=== PATIENT | male | born 1980 | race Caucasian/White ===

== ENCOUNTER 2020-05-23 20:48 | Outpatient (REF) | payer MEDICAID, SELFPAY ==
[2020-05-23 21:11] LABS: Abs Immature Grans 0.02 10^3/uL (0.0-0.06); Absolute Basophil Count 0.05 10^3/uL (0.0-0.2); Absolute Lymphocyte Count 1.46 10^3/uL (1.2-3.4); Absolute Monocyte Count 0.54 10^3/uL (0.1-0.8); Absolute Neutrophil Count 4.27 10^3/uL (1.2-6.7); Basophils % 0.8; Eosinophils % 3.1; HCT 47.7 % (40.0-50.0); HGB 15.4 g/dL (13.5-17.5); Immature Grans % 0.3; Lymphocytes % 22.3; MCH 28.6 pg (27.0-33.0); MCHC 32.3 % (32.0-36.0); MCV 88.5 fL (80-95); MPV 11.5 fL (8.0-11.0); Monocytes % 8.3; Neutrophils % 65.2; Nucleated RBC 0 %; Platelet Count 254 10^3/uL (130-400); RBC 5.39 10^6/uL (4.36-5.78); RDW 12.1 % (11.8-14.1); RDW-SD 39.2 fL; WBC 6.54 10^3/uL (4.4-10.8)
[2020-05-23 21:51] LABS: Anion Gap 12.9 mmol/L (3-11); BUN 22 mg/dL (7-18); CO2 25.1 mmol/L (21.0-32.0); CREATININE 1.14 mg/dL (0.70-1.30); Calcium 9.4 mg/dL (8.5-10.1); Chloride 102 mmol/L (98-107); Glucose 84 mg/dL (74-106); Potassium 4.4 mmol/L (3.5-5.1); Sodium 140 mmol/L (136-145)
[2020-05-23 22:18] LABS: ESR 4 mm/hr (0-15)
[2020-05-25 16:47] LABS: Rheumatoid Factor <8.6 IU/mL (<12.0)
[2020-05-26 09:34] LABS: Lyme Ab w Rflx to Lyme Confirm Negative (Negative)
[2020-05-27 23:25] LABS: Anaplasma phagocytophilum Negative (Negative); B. miyamotoi PCR Negative (Negative); Babesia divergens/MO-1 Negative (Negative); Babesia duncani Negative (Negative); Babesia microti Negative (Negative); Ehrlichia chaffeensis Negative (Negative); Ehrlichia ewingii/canis Negative (Negative); Ehrlichia muris eauclairensis Negative (Negative)
== END 2020-05-23 21:08 ==
LOC: LBN 20:48
PROVIDERS: Nurse Practitioner Family
DX: M25.511 Pain in right shoulder (principal); M25.512 Pain in left shoulder; M25.571 Pain in right ankle and joints of right foot; M25.572 Pain in left ankle and joints of left foot
CPT/HCPCS: 80048; 85652; 87798; 85025; 86431; 86618

== ENCOUNTER 2020-05-26 01:27 | Outpatient (CLI) | payer MEDICAID, SELFPAY ==
--- NOTE | 2020-05-26 06:45 | DI.RAD_ITS ---
EXAM: XR SHOULDER RT COMPLETE 2+V CLINICAL HISTORY: Bilateral shoulder pain. TECHNIQUE: 2D digital imaging was performed. COMPARISON: No exams were available for comparison FINDINGS: BONES: No acute fracture is present. No bony destructive lesion is seen. JOINTS: No dislocation present. The joint spaces are well maintained. SOFT TISSUE: Normal. IMPRESSION: Unremarkable radiographs of the right shoulder. DATA REPOSITORY: RADIATION DOSE DELIVERED:
--- NOTE | 2020-05-26 06:45 | DI.RAD_ITS ---
EXAM: XR ANKLE LT COMPLETE CLINICAL HISTORY: BILAT ANKLE PAIN,M25.579 TECHNIQUE: 2D digital imaging was performed. COMPARISON: No exams were available for comparison FINDINGS: BONES: No acute fracture is present. No bony destructive lesion is seen. JOINTS:The ankle mortise is normally aligned. Mild degenerative changes are seen in the visualized fo ot. SOFT TISSUE: Normal. IMPRESSION: No acute abnormality. DATA REPOSITORY: RADIATION DOSE DELIVERED:
--- NOTE | 2020-05-26 06:45 | DI.RAD_ITS ---
EXAM: XR SHOULDER LT COMPLETE 2+V CLINICAL HISTORY: Bilateral shoulder pain,M25.511,M25.512. TECHNIQUE: 2D digital imaging was performed. COMPARISON: CR LEFT SHOULDER COMPLETE from 05/24/2014 FINDINGS: BONES: No acute fracture is present. No bony destructive lesion is seen. JOINTS: No dislocation present. The joint spaces are well maintained. SOFT TISSUE: Increased size and number of calcifications adjacent to the greater tuberosity consisten t with calcific tendinitis. IMPRESSION: Calcific tendinitis. DATA REPOSITORY: RADIATION DOSE DELIVERED:
--- NOTE | 2020-05-26 06:45 | DI.RAD_ITS ---
EXAM: XR ANKLE RT COMPLETE CLINICAL HISTORY: BILAT ANKLE PAIN,M25.579. TECHNIQUE: 2D digital imaging was performed. COMPARISON: No exams were available for comparison FINDINGS: BONES: No acute fracture is present. No bony destructive lesion is seen. JOINTS: The ankle mortise is normally aligned. SOFT TISSUE: Normal. IMPRESSION: Unremarkable radiographs of the right ankle. DATA REPOSITORY: RADIATION DOSE DELIVERED:
== END 2020-05-26 01:47 ==
PROVIDERS: Visit Provider Nurse Practitioner Family
DX: M75.32 Calcific tendinitis of left shoulder (principal); M25.511 Pain in right shoulder; M25.571 Pain in right ankle and joints of right foot; M25.572 Pain in left ankle and joints of left foot
CPT/HCPCS: 73030; 73610

== ENCOUNTER 2020-08-25 11:00 | Emergency (ER) | payer MEDICAID, SELFPAY ==
[2020-08-25 11:03] VITALS: BP 148/101; PULSE 104; RESP 16; TEMP 36.6; O2SAT 98
--- NOTE | 2020-08-25 11:15 | DI.RAD_ITS ---
EXAM: XR SHOULDER LT COMPLETE 2+V CLINICAL HISTORY: Pain TECHNIQUE: COMPARISON: CR XR SHOULDER LT COMPLETE 2+V from 05/26/2020 FINDINGS: Six views were obtained. There are dense amorphous calcifications which appear to be associated with the infraspinatus tendon, consistent with a calcific peritendinitis. No other bony or soft tissue a bnormality seen. Cartilaginous joint space of the glenohumeral joint appears well maintained. IMPRESSION: Calcific peritendinitis associated with infraspinatus tendon. RADIATION DOSE DELIVERED: Total DLP
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
[2020-08-25] MEDS: Cyclobenzaprine 10 MG TAB PO (11:34)
[2020-08-25] MEDS: Ketorolac 30 MG/ML VIAL IM (11:35)
[2020-08-25] MEDS: Lidocaine 5% Patch 1 PATCH TP (11:35)
[2020-08-25 13:04] VITALS: BP 128/96; PULSE 85; RESP 14; TEMP 36.6; O2SAT 97
[2020-08-25 13:10] VITALS: BP 128/96; PULSE 85; RESP 14; TEMP 36.6; O2SAT 97
--- NOTE | 2020-08-26 09:47 | NUR.NOTE ---
Nursing Note: [id number]--Pt called stating pain not better and may be worse.Had called PT who could not get him in today and he needed to get a pcp appt.. Suggested he come back to ER pt states Thanks for nothing and hung up.
== END 2020-08-25 13:15 | disposition home or self-care (01) ==
PROVIDERS: Emergency Provider Registered Nurse Emergency
DX: M75.32 Calcific tendinitis of left shoulder (principal); R20.2 Paresthesia of skin
CPT/HCPCS: 96372; 99284; 73030; J1885; L3650

== ENCOUNTER 2021-05-29 13:56 | Emergency (ER) | payer OTHER, SELFPAY ==
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
[2021-05-29 14:01] VITALS: BP 163/79; PULSE 51; RESP 17; TEMP 36.7; O2SAT 95
[2021-05-29] MEDS: Meclizine 25 MG TAB PO (14:12)
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
== END 2021-05-29 15:22 | disposition home or self-care (01) ==
PROVIDERS: Emergency Provider Student in an Organized Health Care Education/Training Program
DX: R42 Dizziness and giddiness (principal); R51.9 Headache, unspecified; H55.09 Other forms of nystagmus; S06.899A Other specified intracranial injury with loss of consciousness of unspecified duration, initial encounter; Y04.2XXA Assault by strike against or bumped into by another person, initial encounter
CPT/HCPCS: 99284; 70450; 72125

== ENCOUNTER 2022-12-15 03:05 | Outpatient (CLI) | payer MEDICAID, SELFPAY ==
[2022-12-15 12:29] LABS: ALT 29 U/L (16-63); AST 19 U/L (15-37); Albumin 4.2 g/dL (3.4-5.0); Alkaline Phosphatase 78 U/L (46-116); Anion Gap 6.4 mmol/L (3-11); BUN 16 mg/dL (7-18); Bilirubin, Total 0.4 mg/dL (0.2-1.0); CO2 31.6 mmol/L (21.0-32.0); CREATININE 1.1 mg/dL (0.70-1.30); Calcium 9.4 mg/dL (8.5-10.1); Calculated LDL 88 mg/dL (<100); Chloride 105 mmol/L (98-107); Cholesterol 182 mg/dL (<200); Estimated GFR 85.42 (mL/min/1.73m2); Glucose 128 mg/dL (74-106); HDL Cholesterol 65 mg/dL (40-60); Potassium 4.2 mmol/L (3.5-5.1); Sodium 143 mmol/L (136-145); Total Protein 7.5 g/dL (6.4-8.2); Triglyceride 145 mg/dL (<150)
== END 2022-12-15 03:06 | disposition home or self-care (01) ==
LOC: LOS 03:05
PROVIDERS: PCP Nurse Practitioner Family; Visit Provider Nurse Practitioner Family
DX: E78.5 Hyperlipidemia, unspecified (principal); F41.8 Other specified anxiety disorders
CPT/HCPCS: 36415; 80053; 80061

== ENCOUNTER 2023-01-10 01:19 | Outpatient (CLI) | payer MEDICAID, SELFPAY ==
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
== END 2023-01-10 01:39 ==
LOC: DI 01:19
PROVIDERS: PCP Nurse Practitioner Family; Visit Provider Nurse Practitioner Family
DX: R10.31 Right lower quadrant pain (principal); K42.9 Umbilical hernia without obstruction or gangrene; R59.0 Localized enlarged lymph nodes
CPT/HCPCS: 76857

== ENCOUNTER 2023-01-12 08:03 | Outpatient (CLI) | payer MEDICAID, SELFPAY ==
[2023-01-12 12:32] LABS: Abs Immature Grans 0.02 10^3/uL (0.0-0.06); Absolute Basophil Count 0.06 10^3/uL (0.0-0.2); Absolute Eosinophil Count 0.24 10^3/uL (0.0-0.7); Absolute Lymphocyte Count 1.69 10^3/uL (1.2-3.4); Absolute Monocyte Count 0.44 10^3/uL (0.1-0.8); Absolute Neutrophil Count 4.04 10^3/uL (1.2-6.7); Basophils % 0.9; Eosinophils % 3.7; HCT 43.2 % (40.0-50.0); HGB 14.4 g/dL (13.5-17.5); Immature Grans % 0.3; MCH 28.6 pg (27.0-33.0); MCHC 33.3 % (32.0-36.0); MCV 86 fL (80-95); MPV 11.6 fL (8.0-11.0); Monocytes % 6.8; Neutrophils % 62.3; Platelet Count 251 10^3/uL (130-400); RBC 5.03 10^6/uL (4.36-5.78); RDW 12.9 % (11.8-14.1); RDW-SD 40.1 fL; WBC 6.49 10^3/uL (4.4-10.8)
[2023-01-12 12:54] LABS: TSH (W/Ref FT4) 2.74 uIU/mL (0.36-3.74)
[2023-01-13 10:59] LABS: Hepatitis C Ab w Rflx HCV PCR Negative (Negative)
[2023-01-13 11:03] LABS: HIV-1/2 Ag & Ab Screen Negative (Negative)
== END 2023-01-12 08:04 | disposition home or self-care (01) ==
LOC: LOS 08:03
PROVIDERS: PCP Nurse Practitioner Family; Referring Provider Nurse Practitioner Family; Visit Provider Nurse Practitioner Family
DX: R53.83 Other fatigue (principal); R59.0 Localized enlarged lymph nodes; Z11.4 Encounter for screening for human immunodeficiency virus [HIV]; Z11.59 Encounter for screening for other viral diseases
CPT/HCPCS: 36415; 86803; 87389; 84443; 85025

== ENCOUNTER 2023-01-12 13:17 | Outpatient (REF) | payer MEDICAID, SELFPAY ==
[2023-01-12 14:55] LABS: Bilirubin Negative (Negative); Blood Negative (Negative); Clarity Clear (Clear); Glucose Negative (Negative); Ketones Negative (Negative); Leukocyte Esterase Negative (Negative); Nitrite Negative (Negative); Specific Gravity 1.025 (1.005-1.025); Urobilinogen 0.2 mg/dL (Up to 0.2)
[2023-01-13 13:59] LABS: Chlamydia Result Negative (Negative); GC Result Negative (Negative)
== END 2023-01-12 13:18 | disposition home or self-care (01) ==
LOC: LBN 13:17
PROVIDERS: PCP Nurse Practitioner Family; Visit Provider Nurse Practitioner Family
DX: R59.0 Localized enlarged lymph nodes (principal); F41.8 Other specified anxiety disorders; R53.83 Other fatigue
CPT/HCPCS: 87491; 87591; 81003

== ENCOUNTER 2024-05-28 02:08 | Outpatient (CLI) | payer MEDICAID, SELFPAY ==
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
== END 2024-05-28 02:28 ==
LOC: DI 02:08
PROVIDERS: PCP Nurse Practitioner Family; Visit Provider Nurse Practitioner Family
DX: V86.59XA Driver of other special all-terrain or other off-road motor vehicle injured in nontraffic accident, initial encounter (principal); M79.674 Pain in right toe(s); N50.811 Right testicular pain; N43.3 Hydrocele, unspecified; I86.1 Scrotal varices; M20.11 Hallux valgus (acquired), right foot; R22.42 Localized swelling, mass and lump, left lower limb; N50.812 Left testicular pain
CPT/HCPCS: 73590; 73610; 73630; 76870

== ENCOUNTER 2024-09-27 02:07 | Outpatient (CLI) | payer MEDICAID, SELFPAY ==
--- NOTE | 2024-09-27 15:00 | DI.US_ITS ---
Exam(s) US HERNIA EXAM: US HERNIA CLINICAL HISTORY: R10.32 Acute left groin pain. TECHNIQUE: Ultrasound was performed using standard protocol. COMPARISON: US US HERNIA from 01/10/2023 US US SCROTUM from 05/28/2024 FINDINGS: Images are submitted from ultrasound examination of region of the left groin and right anterior abdom inal wall. In the left groin there are multiple lymph nodes measuring up to 2.6 cm size. Also in the left groin there appears to be a fat containing hernia sac which measures 3 cm length. Does not appear to cont ain obvious bowel loops therein. At the 2nd site right anterior abdominal wall lateral to the umbilicus there is also another hernia s ac evident which is 2.3 cm long and appears to contain fat and as well as some fluid within the herni a sac. IMPRESSION: Left inguinal hernia Right anterior abdominal wall hernia, as described above. DATA REPOSITORY:
== END 2024-09-27 02:27 ==
LOC: DI 02:07
PROVIDERS: PCP Nurse Practitioner Family; Visit Provider Nurse Practitioner Family
DX: K40.90 Unilateral inguinal hernia, without obstruction or gangrene, not specified as recurrent (principal)
CPT/HCPCS: 76857

== ENCOUNTER 2024-10-26 22:02 | Outpatient (REF) | payer MEDICAID, SELFPAY ==
[2024-10-26 22:07] LABS: Bilirubin Negative (Negative); Blood Negative (Negative); Clarity Clear (Clear); Glucose Negative (Negative); Ketones Trace mg/dL (Negative); Leukocyte Esterase Negative (Negative); Nitrite Negative (Negative); Specific Gravity 1.025 (1.005-1.025); Urobilinogen 0.2 mg/dL (Up to 0.2)
== END 2024-10-26 22:03 | disposition home or self-care (01) ==
LOC: LBN 22:02
PROVIDERS: PCP Nurse Practitioner Family; Visit Provider Nurse Practitioner Family
DX: R39.198 Other difficulties with micturition
CPT/HCPCS: 81003

== ENCOUNTER 2024-10-31 02:07 | Outpatient (CLI) | payer MEDICAID, SELFPAY ==
--- NOTE | 2024-10-31 06:45 | DI.CT_ITS ---
Exam(s) CT ABDOMEN PELVIS W EXAM: CT ABDOMEN PELVIS W CLINICAL HISTORY: Painful BMs, urinating,?strangulation, ?stone. TECHNIQUE: Imaging Protocol: Axial computed tomography images with coronal and sagittal reformatted images were created and reviewed CONTRAST MATERIAL: Intravenous: Omnipaque 350 Contrast volume:75 ml Oral: yes COMPARISON: CT ABD PELVIS WITH CONTRAST from 09/24/2009 FINDINGS: ABDOMEN and PELVIS: Lung Bases: No acute findings. Liver: Normal density. No suspicious mass. Gallbladder and biliary tract: No radiodense calculus. No wall thickening or pericholecystic fluid. No biliary dilation. Pancreas: Normal density. No abnormal calcifications or inflammatory process. No evidence of mass. Spleen: Normal. Kidneys: Normal size, contour and axis. No radiodense stones. No obstructive uropathy. No suspicious masses seen. Adrenal glands: No masses seen. Vasculature: Abdominal aorta non-dilated. Soft tissues: Unremarkable. Bladder: No gross wall thickening. No calculi.No focal mass. Bowel: No obstruction. No bowel wall thickening. No evidence of appendicitis. Large quantity of st ool throughout the colon, consistent with constipation. Peritoneal cavity: No ascites. No focal collection. No mesenteric inflammatory response. No free air . Bones: Unremarkable for age. Reproductive organs: Unremarkable. Lymph nodes: No pathologically enlarged lymph nodes. IMPRESSION:: No acute abnormality in the abdomen or pelvis. Large quantity of stool throughout the colon, consistent with constipation. RADIATION DOSE DELIVERED: 426.43mGy.cm Total DLP DATA REPOSITORY: All CT scans at this facility are submitted to the National Radiology Data Registry (NRDR) Dose Index Registry (DIR) with the [employer] ([employer]). RADIATION OPTIMIZATION: All CT scans at this facility use at least one of these dose optimization te chniques: automated exposure control; mA and/or kV adjustment per patient size (includes targeted exa ms where dose is matched to clinical indication); or iterative reconstruction.
[2024-10-31] MEDS: Barium Sulfate 2% W/V-Berry Smoothie 450 ML BTL PO (09:00)
[2024-10-31] MEDS: Barium Sulfate 2% W/V-Creamy Vanilla Smoothie 450 ML BTL PO (09:01)
[2024-10-31] MEDS: Normal Saline - Diluent 50 ML VIAL IJ (11:19)
[2024-10-31] MEDS: Omnipaque 350 MG/ML 500 ML BTL-Imaging package IJ (11:21)
== END 2024-10-31 02:27 ==
LOC: DI 02:07
PROVIDERS: PCP Nurse Practitioner Family; Visit Provider Nurse Practitioner Family
DX: R19.8 Other specified symptoms and signs involving the digestive system and abdomen (principal); K40.20 Bilateral inguinal hernia, without obstruction or gangrene, not specified as recurrent
CPT/HCPCS: 74177

== ENCOUNTER 2024-12-26 03:06 | Outpatient (CLI) | payer MEDICAID, SELFPAY ==
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
== END 2024-12-26 03:26 ==
LOC: DI 03:06
PROVIDERS: PCP Nurse Practitioner Family; Visit Provider Podiatrist
DX: M20.12 Hallux valgus (acquired), left foot (principal); Q70.9 Syndactyly, unspecified
CPT/HCPCS: 73630